=== PATIENT | female | born 1980 | race Caucasian/White ===

== ENCOUNTER 2023-02-09 09:01 | Emergency (ER) | payer BC, SELFPAY ==
[2023-02-09 09:08] VITALS: BP 120/98; PULSE 60; RESP 16; TEMP 36.7; O2SAT 99; BMI 23.4
--- NOTE | 2023-02-09 09:12 | ED_ITS ---
HPI - Abdominal Pain General Chief Complaint: Abdominal Pain Stated Complaint: ABDOMINAL PAIN Time Seen by Provider: 02/09/23 09:04 Mode of arrival: walk-in Limitations: no limitations History of Present Illness HPI narrative: 42-year-old female presents for right lower quadrant abdominal pain. It started last night. No constipation diarrhea or vomiting. No dysuria or hematuria. There is no pain on the left side. The pain is moderate and continuous and she's never had pain like this before. No fever or injury or unusual activity. Related Data Home Medications Medication Instructions Recorded Confirmed No Known Home Medications 02/09/23 02/09/23 Previous Rx's Medication Instructions Recorded dicyclomine 10 mg capsule 10 mg PO QID PRN abdominal pain 02/09/23 #20 caps ondansetron 4 mg disintegrating 4 mg PO Q6H PRN nausea and 02/09/23 tablet vomiting #20 tabs Allergies Allergy/AdvReac Type Severity Reaction Status Date / Time No Known Drug Allergies Allergy Verified 02/09/23 09:07 Review of Systems ROS Narrative A ten point review of systems is negative except as noted above. PFSH PFSH Social History Smoking status: Current every day smoker Exam Narrative Exam Narrative: Nurses note and vital signs reviewed and patient is not hypoxic. General: The patient appears well and in no apparent distress. Patient is resting comfortably on cart. Skin: Warm, dry, no pallor noted. There is no rash noted. Head: Normocephalic, atraumatic Eye: Normal conjunctiva, no drainage Ears, Nose, Mouth, and Throat: oral mucosa is moist. Nares patent. Cardiovascular: Regular Rate and Rhythm Respiratory: Patient is in no distress, no accessory muscle use, lungs are clear to auscultation, no wheezing, rales or rhonchi Back: non-tender GI: tenderness present in the right lower quadrant without mass or distention. Musculoskeletal: The patient has no evidence of calf tenderness, no pitting edema, symmetrical pulses noted bilaterally Neurological: A&O, normal speech Psychiatric: Cooperative Constitutional Vital Signs, click to edit/add: Last Vital Signs Temp 98.0 F 02/09/23 09:08 Pulse 60 02/09/23 09:08 Resp 16 02/09/23 09:08 BP 120/98 H 02/09/23 09:08 Pulse Ox 99 02/09/23 09:08 Course Vital Signs Vital signs: Vital Signs Temperature 98.0 F 02/09/23 09:08 Pulse Rate 60 02/09/23 09:08 Respiratory Rate 16 02/09/23 09:08 Blood Pressure 120/98 H 02/09/23 09:08 Pulse Oximetry 99 02/09/23 09:08 Temperature 98.0 F 02/09/23 09:08 Pulse Rate 60 02/09/23 09:08 Respiratory Rate 16 02/09/23 09:08 Blood Pressure 120/98 H 02/09/23 09:08 Pulse Oximetry 99 02/09/23 09:08 MDM - Abdominal Pain MDM Narrative Medical decision making narrative: CAT scan per radiologist shows normal appendix and findings consistent with enteritis. Calcification the right adnexa was discussed with the patient and she was recommended follow-up with her physician and probable ultrasound and the year. She is able to be discharged home. Treatment diagnosis and follow-up were discussed with the patient. Differential Diagnosis Differential diagnosis: Likely abdominal pain, acute appendicitis, constipation, gastroenteritis and small bowel obstruction Lab Data Attestation: I reviewed the patient's lab results. Labs: Lab Results 02/09/23 Range/Units 09:15 WBC 8.2 (4.0-11.0) 10^3/uL RBC 4.31 (4.20-5.40) 10^6/uL Hgb 14.5 (12.0-16.0) g/dL Hct 42.2 (36.0-48.0) % MCV 97.9 (81.0-99.0) fL MCH 33.6 (26.7-34.0) pg MCHC 34.4 (29.9-35.2) g/dL RDW 11.6 (11.0-15.0) % Plt Count 459 H (150-450) 10^3/uL MPV 8.8 L (9.5-13.5) fL Neut % (Auto) 47.3 (43.0-75.0) % Lymph % (Auto) 38.0 (20.5-60.0) % Woodson % (Auto) 11.6 (1.7-12.0) % Eos % (Auto) 1.9 (0.9-7.0) % Baso % (Auto) 0.7 (0.2-2.0) % Neut # (Auto) 3.9 (1.4-6.5) 10^3/uL Lymph # (Auto) 3.1 (1.2-3.8) 10^3/uL Woodson # (Auto) 1.0 H (0.3-0.8) 10^3/uL Eos # (Auto) 0.2 (0.0-0.7) 10^3/uL Baso # (Auto) 0.1 (0.0-0.1) 10^3/uL Abs Immat Gran (auto) 0.04 H (0.00-0.03) 10^3/uL Imm/Tot Granulo (auto) 0.5 (0.0-0.5) % Sodium 138 (136-145) mmol/L Potassium 4.1 (3.5-5.1) mmol/L Chloride 103 (98-107) mmol/L Carbon Dioxide 27.4 (21.0-32.0) mmol/L Anion Gap 11.7 BUN 13.0 (7.0-18.0) mg/dL Creatinine 0.94 (0.55-1.02) mg/dL Est GFR ( Amer) >60 (>=60) Est GFR (Non-Af Amer) >60 (>=60) BUN/Creatinine Ratio 13.8 Glucose 84 (74-106) mg/dL Calcium 8.8 (8.5-10.1) mg/dL Urine Color Lt. yellow (YELLOW) Urine Clarity Slightly cloudy A (CLEAR) Urine pH 5.5 (5.0-9.0) Ur Specific [place] >=1.030 A (1.005-1.025) Urine Protein Negative (NEG/TRACE) mg/dL Urine Glucose (UA) Negative (NEGATIVE) mg/dL Urine Ketones Negative (NEGATIVE) mg/dL Urine Occult Blood Small A (NEGATIVE) Urine Nitrite Negative (NEGATIVE) Urine Bilirubin Negative (NEGATIVE) Urine Urobilinogen 0.2 (0.2-1.0) EU/dL Ur Leukocyte Esterase Trace A (NEGATIVE) Urine RBC 0-2 (0-2) #/HPF Urine WBC 0-2 A (NONE SEEN) #/HPF Ur Squamous Epith Cells Few A (NONE/RARE) #/LPF Urine Crystals None seen (None Seen) #/HPF Urine Bacteria Small A (NONE SEEN) #/HPF Urine Casts None seen (NONE SEEN) #/LPF Urine Mucus Small A (NONE SEEN) Urine Sperm Seen Ur Culture Indicated? Yes Imaging Data CT scan - abdomen: Radiologist's impression: Procedure: CT abdomen pelvis w con CT abdomen pelvis w con CLINICAL HISTORY: Right lower quadrant pain COMPARISON: None available TECHNIQUE: Axial CT from lung bases through symphysis pubis following the injection of 100 mL of Omnipaque 300 iodinated contrast material. No oral contrast. Coronal and sagittal reconstructions generated. Dose reduction techniques were achieved by using automated exposure control and/or adjustment of mA and/or kV according to patient size and/or use of iterative reconstruction technique. FINDINGS: CT ABDOMEN FINDINGS: Normal heart size. Lung bases clear. Liver and spleen with normal size and enhancement. Normal-sized adrenal glands. Gallbladder and pancreas unremarkable. Normal bilateral renal enhancement without hydronephrosis. Normal caliber abdominal aorta with patent branch vessels. Mild air fluid distention throughout most of the small bowel with slight wall thickening and enhancement of multiple left abdominal bowel loops. May represent mild enteritis/gastroenteritis changes. Moderate retained stool in much of the colon with no definite wall thickening or inflammatory change. Appendix is negative. No drainable ascites. No obstruction or free air. CT PELVIS FINDINGS: Hysterectomy. Right ovary/adnexal 2.4 cm mixed fat, soft tissue, calcification consistent with teratoma. Unremarkable appearance for age of the left ovary with a few tiny follicles. Urinary bladder not well distended but grossly unremarkable. No acute bony process. IMPRESSION: Findings suggestive of mild enteritis or gastroenteritis changes of the GI tract. No obstruction or free air. No drainable ascites. Appendix negative. 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 Probably low significance but follow-up pelvic ultrasound in one year. History. Unremarkable for age left ovary. Electronically authenticated by: MILENA ZURITA Date: 02/09/2023 10:04 Discharge Plan Discharge Chief Complaint: Abdominal Pain Clinical Impression: Enteritis Patient Disposition: Home, Self-Care Time of Disposition Decision: 10:22 Condition: Good Mode of Transportation: Private Vehicle Prescriptions / Home Meds: New dicyclomine 10 mg capsule 10 mg PO QID PRN (Reason: abdominal pain) Qty: 20 0RF ondansetron 4 mg tablet,disintegrating 4 mg PO Q6H PRN (Reason: nausea and vomiting) Qty: 20 0RF No Action No Known Home Medications Instructions: Enteritis (ED) Stand Alone Forms: Portal Instructions Referrals: Chase Rios DO [Primary Care Provider] - 1 week
[2023-02-09 09:33] LABS: Bilirubin Urine NEGATIVE (NEGATIVE); Blood Urine SMALL (NEGATIVE); Color Urine LT. YELLOW (YELLOW); Glucose Urine UA NEGATIVE (NEGATIVE); Ketones Urine NEGATIVE (NEGATIVE); Leukocyte Esterase Urine TRACE (NEGATIVE); Nitrite Urine NEGATIVE (NEGATIVE); Protein Urine NEGATIVE (NEG/TRACE); Specific Gravity Urine >=1.030 (1.005-1.025); Urobilinogen Urine 0.2 EU/dL (0.2-1.0); pH Urine 5.5 (5.0-9.0)
[2023-02-09 09:34] LABS: Basophils Absolute Auto 0.1 10^3/uL (0.0-0.1); Basophils Percent Auto 0.7 % (0.2-2.0); Eosinophils Absolute Auto 0.2 10^3/uL (0.0-0.7); Eosinophils Percent Auto 1.9 % (0.9-7.0); Hematocrit 42.2 % (36.0-48.0); Hemoglobin 14.5 g/dL (12.0-16.0); Immature Granulocytes Abs Auto 0.04 10^3/uL (0.00-0.03); Immature Granulocytes Pct Auto 0.5 % (0.0-0.5); Lymphocytes Absolute Auto 3.1 10^3/uL (1.2-3.8); Mean Corpuscular HGB Conc 34.4 g/dL (29.9-35.2); Mean Corpuscular Hemoglobin 33.6 pg (26.7-34.0); Mean Corpuscular Volume 97.9 fL (81.0-99.0); Mean Platelet Volume 8.8 fL (9.5-13.5); Monocytes Percent Auto 11.6 % (1.7-12.0); Neutrophils Absolute Auto 3.9 10^3/uL (1.4-6.5); Neutrophils Percent Auto 47.3 % (43.0-75.0); Platelet Count 459 10^3/uL (150-450); Red Blood Count 4.31 10^6/uL (4.20-5.40); Red Cell Distribution Width 11.6 % (11.0-15.0); White Blood Count 8.2 10^3/uL (4.0-11.0)
[2023-02-09 09:35] LABS: Clarity Urine SLIGHTLY CLOUDY (CLEAR)
[2023-02-09 09:40] LABS: Anion Gap 11.7; BUN Creatinine Ratio 13.8; Calcium 8.8 mg/dL (8.5-10.1); Carbon Dioxide 27.4 mmol/L (21.0-32.0); Chloride 103 mmol/L (98-107); Estimated GFR (African America >60 (>=60); Estimated GFR (Non-African Ame >60 (>=60); Glucose 84 mg/dL (74-106); Potassium 4.1 mmol/L (3.5-5.1); Sodium 138 mmol/L (136-145)
[2023-02-09 09:41] LABS: RBC Urine 0-2 #/HPF (0-2); WBC Urine 0-2 #/HPF (NONE SEEN)
[2023-02-09 09:42] LABS: Bacteria Urine SMALL #/HPF (NONE SEEN); Cast Seen? NONE SEEN #/LPF (NONE SEEN); Crystals Seen? None Seen #/HPF (None Seen); Mucus Urine SMALL (NONE SEEN); Sperm Urine SEEN; Squamous Epithelial Cell Urine FEW #/LPF (NONE/RARE); Urine Culture Indicated YES
[2023-02-09 10:31] VITALS: BP 121/92; PULSE 68; RESP 16; O2SAT 99
== END 2023-02-09 10:31 | disposition home or self-care (01) ==
PROVIDERS: Emergency Provider Emergency Medicine; PCP Family Medicine
DX: K52.9 Noninfective gastroenteritis and colitis, unspecified (principal); F17.210 Nicotine dependence, cigarettes, uncomplicated
CPT/HCPCS: 36415; 74177; 80048; 81001; 85025; 87086; 99284; Q9967